=== PATIENT | female | born 1955 | race Caucasian/White ===

== ENCOUNTER 2019-02-09 17:24 | Emergency (ER) | payer BC ==
[2019-02-09] MEDS ORDERED: TETANUS & DIPHTHERIA TOX,ADULT 0.5 ML VIAL ONE (18:34)
[2019-02-09] MEDS ORDERED: HYDROCODONE/APAP 10/325 TAB ONE (21:17)
--- NOTE | 2019-02-09 21:44 | ER ---
Nurse's Notes [facility] Name: Macy Stack Age: 63 yrs Sex: Female : 1955 Arrival Date: 02/09/2019 Time: 17:26 Bed 18 Private MD: Diagnosis: Colles' fracture;Colles' fracture of left radius Presentation: 02/09 17:30 Presenting complaint: Patient states: "Last night I was going out of the house I have a aj1 side walk there and my left foot rolled off of the concrete and I went down on my right knee and my left hand and my face. Laceration noted to bridge of nose. Abrasion noted to forehead. Denies LOC, vomiting. Patient reports that she takes aspirin daily, but she does not take any other blood thinners. Patient reports pain to left wrist, right knee. Transition of care: patient was not received from another setting of care. Onset of symptoms was February 08, 2019 at 21:00. Risk Assessment: Do you want to hurt yourself or someone else? Patient reports no desire to harm self or others. Initial Sepsis Screen: Does the patient meet any 2 criteria? No. Patient's initial sepsis screen is negative. Does the patient have a suspected source of infection? No. Patient's initial sepsis screen is negative. Care prior to arrival: None. 17:30 Method Of Arrival: Wheelchair aj1 17:30 Acuity: VINAY 3 aj1 19:00 Mechanism of Injury: Fall from standing position. Trauma event details: Injury occurred cc3 in the [facility]. Triage Assessment: 17:36 General: Appears in no apparent distress. uncomfortable, Behavior is calm, cooperative, aj1 appropriate for age. Pain: Complains of pain in left wrist and right knee Pain currently is 9 out of 10 on a pain scale. Neuro: Level of Consciousness is awake, alert, obeys commands, Oriented to person, place, time, situation. Cardiovascular: Patient's skin is warm and dry. Respiratory: Airway is patent Respiratory effort is even, unlabored, Respiratory pattern is regular, symmetrical. Musculoskeletal: Range of motion: limited in left wrist and right knee. Trauma Activation: Physician: ED Physician; Name: ; Notified At: ; Arrived At: Physician: General Surgeon; Name: ; Notified At: ; Arrived At: Physician: Radiology; Name: ; Notified At: ; Arrived At: Physician: Respiratory; Name: ; Notified At: ; Arrived At: Physician: Lab; Name: ; Notified At: ; Arrived At: 19:00 was not activated as endorsed cc3 Historical: - Allergies: 17:36 No Known Allergies; aj1 - Home Meds: 17:36 losartan oral oral [Active]; Aspirin Oral [Active]; Calcium Carbonate Oral [Active]; aj1 vitamin B02-xqisk acid oral oral [Active]; Magnesium Oxide Oral [Active]; - PMHx: 17:36 Hypertension; scoliosis; low back pain; aj1 - PSHx: 17:36 None; aj1 - Immunization history:: Flu vaccine is up to date. - Social history:: Smoking status: Patient uses tobacco products, smokes one-half pack cigarettes per day. - Immunization history: Last tetanus immunization: unknown. - Ebola Screening: : Patient denies travel to an Ebola-affected area in the 21 days before illness onset. Screenin:27 Abuse screen: Denies threats or abuse. Denies injuries from another. Nutritional rv screening: No deficits noted. Tuberculosis screening: No symptoms or risk factors identified. Fall Risk None identified. Primary Survey: 19:00 NO uncontrolled hemorrhage observed. Breathing/Chest: Respiratory pattern: regular, cc3 Respiratory effort: spontaneous, unlabored, Breath sounds: clear, bilaterally. Chest inspection: symmetrical rise and fall of the chest. Circulation: Heart tones present. Disability Alert. Exposure/Environment: There is no evidence of uncontrolled external bleeding. A warming method has been applied: A warm blanket has been provided to the patient. 19:30 Reassessment Airway Airway Patent Breathing/Chest Respiratory pattern Regular cc3 Respiratory effort Spontaneous Unlabored Breath sounds Clear Chest inspection Symmetrical Circulation Heart tones Present Disability Alert. Assessment: 18:26 General: Appears in no apparent distress. comfortable, Behavior is calm, cooperative. rv Pain: Complains of pain in left arm. Neuro: Level of Consciousness is awake, alert, obeys commands, Oriented to person, place, time, situation. Cardiovascular: Capillary refill < 3 seconds. Respiratory: Airway is patent. GI: No signs and/or symptoms were reported involving the gastrointestinal system. : No signs and/or symptoms were reported regarding the genitourinary system. EENT: No signs and/or symptoms were reported regarding the EENT system. Derm: Skin is intact. Musculoskeletal: Reports pain in left arm. 19:15 Reassessment: Patient appears in no apparent distress at this time. Patient and/or cc3 family updated on plan of care and expected duration. Pain level reassessed. Patient is alert, oriented x 3, equal unlabored respirations, skin warm/dry/pink. Received this female patient from YULI Mendoza as a case of fall injury, awaiting xray results. No IV cannula in situ. 20:15 Reassessment: Patient appears in no apparent distress at this time. Patient and/or cc3 family updated on plan of care and expected duration. Pain level reassessed. Patient is alert, oriented x 3, equal unlabored respirations, skin warm/dry/pink. 21:00 Reassessment: Patient appears in no apparent distress at this time. Patient and/or cc3 family updated on plan of care and expected duration. Pain level reassessed. Patient is alert, oriented x 3, equal unlabored respirations, skin warm/dry/pink. Patient was ordered for [place] 10 mg-325 mg oral, the patient just took half tablet now and she said she will take the other half at home, Dr. Mccollum and charge nurse Rachel informed. 21:55 Reassessment: Patient appears in no apparent distress at this time. Patient and/or cc3 family updated on plan of care and expected duration. Pain level reassessed. Patient is alert, oriented x 3, equal unlabored respirations, skin warm/dry/pink. Dr. Mccollum discharged home the patient with prescription given. No IV cannula in situ. Splint was applied by tech internangel Aden and checked by Dr. Mccollum, sling applied as well. Patient left ER vitally stable by wheelchair escorted by her sister. Patient denies pain at this time. Patient states feeling better. Vital Signs: 17:36 BP 145 / 75; Pulse 74; Resp 18; Temp 97.8; Pulse Ox 98% on R/A; Weight 83.01 kg (R); aj1 Height 5 ft. 7 in. (170.18 cm) (R); Pain 9/10; 19:26 BP 150 / 76; Pulse 70; Resp 17 S; Pulse Ox 96% on R/A; cc3 20:11 BP 136 / 82; Pulse 67; Resp 18 S; Pulse Ox 96% on R/A; cc3 21:18 BP 135 / 87; Pulse 69; Resp 16 S; Pulse Ox 96% on R/A; cc3 17:36 Body Mass Index 28.66 (83.01 kg, 170.18 cm) aj1 [place] Coma Score: 18:27 Eye Response: spontaneous(4). Verbal Response: oriented(5). Motor Response: obeys rv commands(6). Total: 15. Trauma Score (Adult): 18:27 Eye Response: spontaneous(1); Verbal Response: oriented(1); Motor Response: obeys rv commands(2); Systolic BP: > 89 mm Hg(4); Respiratory Rate: 10 to 29 per min(4); [place] Score: 15; Trauma Score: 12 ED Course: 17:26 Patient arrived in ED. mr 17:32 Fadi Lima MD is Attending Physician. kdr 17:33 Triage completed. aj1 17:36 Arm band placed on Patient placed in an exam room. aj1 17:56 Reji Bourgeois, YULI is Primary Nurse. rv 18:22 Knee Right 3 View XRAY In Process Unspecified. EDMS 18:22 Wrist Left (3 View) XRAY In Process Unspecified. EDMS 18:22 Hand Left 3 View In Process Unspecified. EDMS 18:28 Patient has correct armband on for positive identification. Bed in low position. Call rv light in reach. Side rails up X 1. Pulse ox on. NIBP on. 18:28 Patient maintains SpO2 saturation greater than 95% on room air. rv 19:00 Thermoregulation: warm blanket given to patient. cc3 19:06 Attending Physician role handed off by Fadi Lima MD gs 19:06 Emiliano Mccollum MD is Attending Physician. gs 21:43 Jacob Ware MD is Referral Physician. gs 21:55 No provider procedures requiring assistance completed. Patient did not have IV access cc3 during this emergency room visit. 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 Exp: rv 12/06/2020. Lot #: [id number]. } Route: IM; Site: left gluteus; 19:15 Follow up: Response: No adverse reaction cc3 21:00 Drug: [place] 10 mg-325 mg 1 tabs Route: PO; cc3 21:55 Follow up: Response: No adverse reaction; Pain is decreased cc3 Intake: 21:00 PO: 200ml (Water); Total: 200ml. cc3 Outcome: 21:43 Discharge ordered by . 21:55 Discharged to home via wheelchair, with family. cc3 21:55 Condition: stable 21:55 Discharge instructions given to patient, family, Instructed on discharge instructions, follow up and referral plans. medication usage, Demonstrated understanding of instructions, follow-up care, medications, Prescriptions given X 1. 21:55 Patient's length of stay in the Emergency Department was greater than 2 hours. doctor's cc3 review of diagnostic result, splint and slingPatient's length of stay extended due to 22:11 Patient left the ED. cc3 Signatures: Dispatcher [employer] EDMS Cinthya Clay RN RN ajFadi Neil MD MD kdr Rivera, Mary mr Starr, Gregory, MD MD gs Vicente, Ronaldo, RN RN rv Cordel, Charlene cc3 Corrections: (The following items were deleted from the chart) 20:15 19:15 Reassessment: Patient appears in no apparent distress at this time. Patient cc3 and/or family updated on plan of care and expected duration. Pain level reassessed. Patient is alert, oriented x 3, equal unlabored respirations, skin warm/dry/pink. Received this female patient from YULI Mendoza as acase o cc3 21:47 21:00 Reassessment: Patient appears in no apparent distress at this time. Patient cc3 and/or family updated on plan of care and expected duration. Pain level reassessed. Patient is alert, oriented x 3, equal unlabored respirations, skin warm/dry/pink. Patient was ordered for [place] 10 mg oral, the patient just took half tablet now and she said she will take the other half at home, Dr. Mcclolum and charge nurse Rachel informed. cc3
--- NOTE | 2019-02-09 21:44 | EDPHYS ---
Physician Documentation [facility] Name: Macy Stack Age: 63 yrs Sex: Female : 1955 Arrival Date: 02/09/2019 Time: 17:26 Bed 18 Private MD: ED Physician Emiliano Mccollum HPI: 02/09 18:10 This 63 yrs old Female presents to ER via Wheelchair with complaints of Fall kdr Injury. 18:10 Details of fall: The patient fell from an upright position, while walking. Onset: The kdr symptoms/episode began/occurred suddenly, last night. Associated injuries: The patient sustained left wrist and left hand, contusion, ecchymosis, painful injury, swelling, right knee, abrasion. Severity of symptoms: At their worst the symptoms were very mild, in the emergency department the symptoms are unchanged. The patient has not experienced similar symptoms in the past. The patient has not recently seen a physician. The patient states that she fell last night tripping and going to the ground. She denies head injury though she does have a small laceration to the bridge of her nose from her glasses that were broken. She also had pain to the left wrist and right knee with abrasion to knee and ecchymosis to left palm and lateral wrist. Historical: - Allergies: 17:36 No Known Allergies; aj1 - Home Meds: 17:36 losartan oral oral [Active]; Aspirin Oral [Active]; Calcium Carbonate Oral [Active]; aj1 vitamin [id number] acid oral oral [Active]; Magnesium Oxide Oral [Active]; - PMHx: 17:36 Hypertension; scoliosis; low back pain; aj1 - PSHx: 17:36 None; aj1 - Immunization history:: Flu vaccine is up to date. - Social history:: Smoking status: Patient uses tobacco products, smokes one-half pack cigarettes per day. - Immunization history: Last tetanus immunization: unknown. - Ebola Screening: : Patient denies travel to an Ebola-affected area in the 21 days before illness onset. ROS: 18:10 Constitutional: Negative for fever, chills, and weight loss, Eyes: Negative for injury, kdr pain, redness, and discharge, Neck: Negative for injury, pain, and swelling, Cardiovascular: Negative for chest pain, palpitations, and edema, Respiratory: Negative for shortness of breath, cough, wheezing, and pleuritic chest pain, Abdomen/GI: Negative for abdominal pain, nausea, vomiting, diarrhea, and constipation, Back: Negative for injury and pain, : Negative for injury, bleeding, discharge, and swelling, Neuro: Negative for headache, weakness, numbness, tingling, and seizure activity. Psych: Negative for depression, anxiety, suicide ideation, homicidal ideation, and hallucinations, Allergy/Immunology: Negative for hives, rash, and allergies, Endocrine: Negative for neck swelling, polydipsia, polyuria, polyphagia, and marked weight changes, Hematologic/Lymphatic: Negative for swollen nodes, abnormal bleeding, and unusual bruising. 18:10 MS/extremity: Positive for tenderness, Minor pain to left wrist and right knee, Negative for bite, contusion, decreased range of motion, deformity, ecchymosis, erythema, laceration, puncture, rash, swelling. Exam: 18:10 Constitutional: This is a well developed, well nourished patient who is awake, alert, kdr and in no acute distress. Head/Face: Normocephalic, atraumatic. Eyes: Pupils equal round and reactive to light, extra-ocular motions intact. Lids and lashes normal. Conjunctiva and sclera are non-icteric and not injected. Cornea within normal limits. Periorbital areas with no swelling, redness, or edema. Neck: Trachea midline, no thyromegaly or masses palpated, and no cervical lymphadenopathy. Supple, full range of motion without nuchal rigidity, or vertebral point tenderness. No Meningismus. Chest/axilla: Normal chest wall appearance and motion. Nontender with no deformity. No lesions are appreciated. Cardiovascular: Regular rate and rhythm with a normal S1 and S2. No gallops, murmurs, or rubs. Normal PMI, no JVD. No pulse deficits. Respiratory: Lungs have equal breath sounds bilaterally, clear to auscultation and percussion. No rales, rhonchi or wheezes noted. No increased work of breathing, no retractions or nasal flaring. Abdomen/GI: Soft, non-tender, with normal bowel sounds. No distension or tympany. No guarding or rebound. No evidence of tenderness throughout. Back: No spinal tenderness. No costovertebral tenderness. Full range of motion. MS/ Extremity: Pulses equal, no cyanosis. Neurovascular intact. Full, normal range of motion. Neuro: Awake and alert, GCS 15, oriented to person, place, time, and situation. Cranial nerves II-XII grossly intact. Motor strength 5/5 in all extremities. Sensory grossly intact. Cerebellar exam normal. Normal gait. Psych: Awake, alert, with orientation to person, place and time. Behavior, mood, and affect are within normal limits. 18:10 Musculoskeletal/extremity: The patient has abrasion to the anterior right knee and deformity (pre-existing) to the left wrist. Ecchymosis to the thenar eminence . Vital Signs: 17:36 BP 145 / 75; Pulse 74; Resp 18; Temp 97.8; Pulse Ox 98% on R/A; Weight 83.01 kg (R); aj1 Height 5 ft. 7 in. (170.18 cm) (R); Pain 9/10; 19:26 BP 150 / 76; Pulse 70; Resp 17 S; Pulse Ox 96% on R/A; cc3 20:11 BP 136 / 82; Pulse 67; Resp 18 S; Pulse Ox 96% on R/A; cc3 21:18 BP 135 / 87; Pulse 69; Resp 16 S; Pulse Ox 96% on R/A; cc3 17:36 Body Mass Index 28.66 (83.01 kg, 170.18 cm) aj1 [place] Coma Score: 18:27 Eye Response: spontaneous(4). Verbal Response: oriented(5). Motor Response: obeys rv commands(6). Total: 15. Trauma Score (Adult): 18:27 Eye Response: spontaneous(1); Verbal Response: oriented(1); Motor Response: obeys rv commands(2); Systolic BP: > 89 mm Hg(4); Respiratory Rate: 10 to 29 per min(4); [place] Score: 15; Trauma Score: 12 Procedures: 21:41 Splinting: Splint applied to left wrist. gs MDM: 18:10 Data reviewed: vital signs, nurses notes, radiologic studies. Counseling: I had a kdr detailed discussion with the patient and/or guardian regarding: the historical points, exam findings, and any diagnostic results supporting the discharge/admit diagnosis, radiology results, the need for outpatient follow up. 19:06 Patient medically screened. gs 21:41 Differential diagnosis: abrasion, contusion, fracture. Response to treatment: the patient's symptoms have markedly improved after treatment. ED course: pt seen and examined, xrays reviewed by me appears fractured . 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 Exp: rv 12/06/2020. Lot #: [id number]. } Route: IM; Site: left gluteus; 19:15 Follow up: Response: No adverse reaction cc3 21:00 Drug: [place] 10 mg-325 mg 1 tabs Route: PO; cc3 21:55 Follow up: Response: No adverse reaction; Pain is decreased cc3 Disposition: 02/09/19 21:43 Discharged to Home. Impression: Colles' fracture, Colles' fracture of left radius. - Condition is Stable. - Discharge Instructions: Wrist Fracture Treated With Immobilization. - Prescriptions for Tylenol- Codeine #4 300-60 mg Oral Tablet - take 1 tablet by ORAL route every 6 hours As needed; 10 tablet. - Medication Reconciliation Form, Thank You Letter, Antibiotic Education, Prescription Opioid Use form. - Follow up: Private Physician; When: 2 - 3 days; Reason: Re-evaluation by your physician. Follow up: Jacob Ware MD; When: 2 - 3 days; Reason: Re-evaluation by your physician. Signatures: Dispatcher [employer] [facility] Cinthya Clay RN RN aj1 Fadi Lima MD MD [facility] Emiliano Mccollum MD MD Reji Bourgeois RN RN Porsha Amador cc3 Corrections: (The following items were deleted from the chart) 18:17 17:52 Hand Right 3 View+RAD.RAD.BRZ ordered. [facility] 22:11 21:43 02/09/2019 21:43 Discharged to Home. Impression: Colles' fracture; Colles' cc3 fracture of left radius. Condition is Stable. Forms are Medication Reconciliation Form, Thank You Letter, Antibiotic Education, Prescription Opioid Use. Follow up: Private Physician; When: 2 - 3 days; Reason: Re-evaluation by your physician. Follow up: Jacob Ware; When: 2 - 3 days; Reason: Re-evaluation by your physician. gs
--- NOTE | 2019-02-10 09:21 | RAD REPORT ---
EXAM DESCRIPTION: RAD - Wrist Left 3 View - 02/09/2019 6:20 pm CLINICAL HISTORY: Left wrist pain status post injury FINDINGS: Old nonunited scaphoid fracture. Old ununited ulnar styloid process fracture Old fracture involves the distal radius. Sclerosis is seen within the distal radial metaphysis which could all be chronic or indicate an acute impaction fracture. Scaphoid lunate advance collapse suspected
--- NOTE | 2019-02-10 09:22 | RAD REPORT ---
EXAM DESCRIPTION: RAD -Hand Left 3 View - 02/09/2019 6:20 pm CLINICAL HISTORY: Left hand pain status post injury FINDINGS: No fracture or dislocation is seen involving the left hand. Osteoporosis
--- NOTE | 2019-02-10 09:24 | RAD REPORT ---
EXAM DESCRIPTION: RAD - Knee Right 3 View - 02/09/2019 6:20 pm CLINICAL HISTORY: Right knee pain status post injury FINDINGS: Bony/calcific densities adjacent to the anterior aspect of the proximal tibia probably are chronic. No acute fracture or dislocation seen. If patient continues have symptoms to suggest an occult fracture, ligamentous or meniscal injury MRI would be recommended.
== END 2019-02-09 22:11 | disposition home or self-care (01) ==
LOC: ER 17:24
PROC: 2W3DX1Z Immobilization of Left Lower Arm using Splint (ICD-10-PCS; principal; 2019-02-09)
DX: S52.532A Colles' fracture of left radius, initial encounter for closed fracture (principal); S01.21XA Laceration without foreign body of nose, initial encounter; W18.30XA Fall on same level, unspecified, initial encounter; Y93.01 Activity, walking, marching and hiking; I10 Essential (primary) hypertension; F17.210 Nicotine dependence, cigarettes, uncomplicated; Z23 Encounter for immunization
CPT/HCPCS: 90714; 99284